=== PATIENT | female | born 1985 | race Two or more races ===

== ENCOUNTER → 2017-08-31 14:41 | Outpatient (CLI) | payer SELFPAY ==
[2017-08-31 16:25] LABS: hCG Titer Quant., Serum 147 mIU/mL (<9 non-preg)
== END ==
PROVIDERS: Visit Provider Obstetrics & Gynecology
DX: O20.0 Threatened abortion (principal)
CPT/HCPCS: 36415; 84702

== ENCOUNTER → 2017-09-02 14:59 | Outpatient (CLI) | payer SELFPAY ==
[2017-09-02 16:41] LABS: hCG Titer Quant., Serum 149 mIU/mL (<9 non-preg)
== END ==
PROVIDERS: Visit Provider Obstetrics & Gynecology
DX: O20.0 Threatened abortion (principal); Z3A.00 Weeks of gestation of pregnancy not specified
CPT/HCPCS: 36415; 84702

== ENCOUNTER → 2020-06-26 16:13 | Outpatient (CLI) | payer SELFPAY ==
[2020-07-02 16:34] LABS: HPV Reflexed? NOT INDICATED
== END ==
PROVIDERS: Visit Provider Obstetrics & Gynecology
DX: Z12.4 Encounter for screening for malignant neoplasm of cervix (principal)
CPT/HCPCS: 88175; G0145

== ENCOUNTER 2020-06-28 13:31 | Day surgery (SDC) | payer SELFPAY ==
[2020-06-28] VITALS (7 sets, daily range): BP systolic 105–129; BP diastolic 71–81; PULSE 72–101; RESP 16–18; TEMP 36.1–36.9; O2SAT 98–100; BMI 32.1
--- NOTE | 2020-06-28 12:25 | HP.PCM_ITS ---
History and Physical Date of Admission: 06/28/20 Surgical History and Physical Date: 06/28/2020 Name: STEPHANY VALENCIA Age: 35 Date of : 1985 Stephany Valencia, a 35 year old female 4 1 3 0 5, presents for Suction D and E on June 28, 2020 at 2:30. -- Stephany presents 35 y.o. G 8 P 5 non-smoker with an approximate guess at LMP of 04-22-20. UPT is positive today in our Office. Presents by approximate LMP at 9 weeks 1 day and an CHANDA of 01-27-21. Denies spotting/bleeding thus far in . MEDICATIONS HISTORY: Patient is also takin. 27-0.8 mg tablet, One pill by mouth once a day ALLERGIES: NKDA Infections - Chicken pox Illnesses - no serious past illnesses Accidents - None Hospitalizations - C/S 08-13-06 Jason Perez Review of Systems: GENERAL - Denies fever, or chills SKIN - Denies skin changes EYES - Denies visual changes EARS - Denies difficulty hearing NOSE - Denies nasal congestion or bleeding MOUTH - Denies sore throat or difficulty swallowing NECK - Denies pain or swelling RESPIRATORY - Denies shortness of breath or wheezing CARDIOVASCULAR - Denies palpitations or chest pain GASTROINTESTINAL - nausea GENITOURINARY - Denies dysuria, frequency of urination, incontinence of urine MUSCULOSKELETAL - Denies joint or muscle pain NEUROLOGICAL - Denies localized numbness or weakness PSYCHIATRIC - Denies depression or anxiety ENDOCRINE - Denies heat or cold intolerance, weight loss or gain HEMATO-IMMUNOLOGIC - Denies excessive bleeding with cuts SOCIAL HISTORY: Alcohol Use - denies use Smoking - denies use Diet - balanced Diet Lifestyle - moderate stress lifestyle and Exercise - active Seat Belt Use - always Employer - homemaker Illicit Drug Use - denies use of street drugs Sexual Activity - Residence - owns a home Spouse-Sig Other Name - Aleksander Spouse-Sig Other Occupation - construcion crew Spouse-Sig Other Phone No - [phone] Children Name(s) - Mariano '07, Cedric '08,Keri '11, Cirilo '13,Rajendra '16 Control - FAMILY HISTORY: Maternal history of Heart Disease. Paternal history of Heart Disease. Father: DM II. MENSTRUAL HISTORY: LMP Known?- Approximate-Month Known, LMP - 04/22/20, Age Onset Menarche - 11 PAST PREGNANCIES: Total Pregnancies - 9; Full Term Pregnancies - 4; Premature - 1; Abortions, Ind uced - 0; Abortions, Spontaneous - 3; Ectopics - 0; Multiple Births - 0; Living Children - 5 SURGICAL HISTORY: 1. 05/01/2010 Repeat ; - 2. 11/03/2007 Repeat ; - 3. 08/13/2006 ; JASMIN - placenta was hardening, Severe IUGR, severe oligohydramnios, non-reassurring NST 4. 01/03/2013 Repeat ; Arthur Gardner M.D. - 5. 11/06/2015 ; Arthur Gardner M.D. - PHYSICAL EXAM BP- 128/86 Sitting, Right arm, regular cuff Weight- 199.97237 lbs Height- 66 inch BMI:32.19 CONSTITUTIONAL - NAD, well nourished, and well developed SKIN - No rash, lesions, or ulcers HEENT - Normocephalic, PERRLA, EOMI NECK - No nodes, no nuchal rigidity and thyroid normal size and texture LYMPH NODES - Palpation of lymph nodes in neck and groins within normal limits LUNGS - CTA x2 without wheezes, crackles or rales CARDIAC - Regular rate and rhythm without rubs, murmurs, or gallops BREAST - declined ABDOMEN - Without hepatosplenomegaly, distention, masses, rebound, or guarding; normal bowel sounds; no hernias EXTREMITIES - No edema or calf tenderness NEUROLOGICAL - Cranial nerves II-XII grossly intact PSYCHIATRIC - A and O to time, place, person, mood and affect External Genital Vagina - non-tender without lesions Urethra/Urethral Meatus - non-tender Bladder - non-tender Vagina - vaginal stubbs are pink and moist without loss of rugae and no evidence of atrophy Cervix - without cervical motion tenderness and has normal size and features without evident lesions Uterus - multiparous size 6 cm & wt 75-125 g Adnexa - clear without masses or tenderness Pap - GC/Chlamydia cultures done, done -- Reflex to ASCUS, LSIL and JANE ASSESSMENT/PLAN: 1. Blighted ovum Positive test in office today. U/s with blighted ovum and concern for molar . For suction D&C
[2020-06-28 14:12] LABS: Hematocrit 42.5 % (37-47); Mean Corp Hgb Conc 32.9 g/dL (32-36); Mean Corpuscular Volume 88.2 fL (81-99); Mean Platelet Vol. 9.2 fl (6.2-12.0); Platelet Count 194 K/mm3 (150-450); RBC Distribution Width CV 13.5 % (11.6-14.6); RBC Distribution Width SD 43.6 fl (35.1-43.9); Red Blood Count 4.82 M/mm3 (4.2-5.4); White Blood Count 7.1 K/mm3 (4.4-11.0)
[2020-06-28 14:26] LABS: ALB/GLOB Ratio 1.1 RATIO (0.9-2.4); AST(SGOT) 15 U/L (15-37); Alanine Aminotransfer ALT/SGPT 33 U/L (13-56); Albumin, Serum 4.1 g/dL (3.2-5.0); Alkaline Phosphatase 40 U/L (45-117); Anion Gap 8 (5-15); BUN 8 mg/dL (7-18); BUN/Creat Ratio 12.5 RATIO (10-20); Chloride 103 mmol/L (98-107); Creatinine, Serum 0.64 mg/dL (0.55-1.02); EST Glomerular Filtration Rate 113 mL/min (>60); Est Glom Filt Rate - Afr Amer 136 mL/min (>60); Estimated Creatinine Clearance 114.86 ml/min; Globulin 3.8 g/dL (2.2-4.2); Glucose 92 mg/dL (74-106); Potassium 3.5 mmol/L (3.5-5.1); Protein, Total 7.9 g/dL (6.4-8.2); Sodium Level 135 mmol/L (136-145)
[2020-06-28] MEDS: Lactated Ringers 1,000 ML 100 ML IV (14:28)
--- NOTE | 2020-06-28 14:30 | POC_PTH ---
PATIENT: GISELLA VALENCIA LOC: [facility] U#:[id number] AGE/SX: 35/F ROOM: RE06/28/[address]: Dr. Jesus Morales MD : 1985 BED: DIS: 06/28/2020 SPEC #: [id number] RECD: 07/01/20 06:45 STATUS: HUI CHEYDaphne #: [id number] TATYANA: 06/28/20 14:[address]: Jesus Morales DEPT: SURGICAL PATHOLOGY RECD BY: Linda Castillo ENTERED: 07/01/20 07:52 SP TYPE: PROD CONC OTHR DR: No Primary Care Phys Tissues: Product of conception, NOS Procedures: Surgery Specimen Level IV HEADER OPERATION: Suction dilation and curettage PRE-OP DIAGNOSIS: Blighted ovum TISSUE SUBMITTED: Products of conception MICROSCOPIC DIAGNOSIS Endometrium, curettage: Chorionic villi, decidualized stroma and trophoblastic cells consistent with products of conception. AM:liya 07/02/2020 MICROSCOPIC DESCRIPTION Slides are reviewed. GROSS DESCRIPTION Received in fixative is one container labeled with the patient's name and designated products of conception. The specimen consists of multiple irregular fragments of light to dark mora soft tissue that in aggregate measure 8 x 7 x 1 cm. parts are not grossly recognized. Rounder Hand portions are submitted in one cassette. / AM:rg 07/01/20 TC:3 CPT: 05486
--- NOTE | 2020-06-28 16:33 | DCINST_ITS ---
Discharge Diet: No Restrictions Discharge Activity: Return to Normal Activity, May Drive, May Shower May resume sexual activity in: 4-6 weeks Weight Bearing Status: Weight bearing as tolerated Call your doctor if your incision/area has: Continuous Slow Oozing, Foul Smelling Discharge Call your doctor if you observe: Fever of 101 or Higher, Shortness of breath, Chest pain Allergies/Adverse Reactions: Allergies No Known Allergies Allergy (Verified 06/28/20 14:10) Medications to take at Discharge NK 06/27/20 Primary Care Physician: Care Physician,No Primary [Primary Care Provider] - Test Results: Test results from this visit will be discussed in further detail at your follow- up appointment, if applicable. Please Follow Up With: Arthur Gardner MD When: 2 weeks
--- NOTE | 2020-06-28 16:34 | OP.PCM_ITS ---
Report of Operation Date of Procedure: 06/28/20 Pre-Operative Diagnosis: Blighted ovum, possible molar Post-Operative Diagnosis: Blighted ovum, possible molar Surgery/Procedure Performed:: Suction dilation curettage ultrasound-guided Description of Surgical Findings:: Surgeon: Jesus Morales MD Anesthesia: MAC EBL: 25 cc Urine output: 400 cc IV fluids: 500 cc Complications: None Specimen: products of conception Findings: Normal cervix. 7 mm curved curette used. Post procedure ultrasound with thin endometrial stripe. Consent: Patient with blighted ovum possible molar in need of suction dilation curettage. Patient understands the risk of the procedure include but are not limited to visceral or vascular injury, prolonged hospitalization, blood loss and need for transfusion, reoperation. Patient stated understanding wished proceed. Patient educated on genetic screening with products of conception and declined. All questions were answered consent was signed. Procedure: Patient was brought back to the OR where MAC anesthesia found to be adequate. 200 mg of doxycycline IV were given for infection prophylaxis. Patient was prepared and draped in a dorsolithotomy position with yellowfin stirrups. Weighted speculum placed in posterior aspect of vagina. Cervical dilators were used to dilate cervix. 7 mm suction curette was used under direct visualization. Products sent to pathology. Good hemostasis was noted. Post procedure ultrasound findings as noted above. All counts correct x2. Patient tolerated procedure well was brought recovery stable condition. admissions clerk: None
== END 2020-06-28 17:58 | disposition home or self-care (01) ==
LOC: SDC 13:37 → AC 13:39
PROVIDERS: Referring Provider Obstetrics & Gynecology; Visit Provider Obstetrics & Gynecology
PROC: (CPT 59820; principal; 2020-06-28 14:15)
DX: O02.0 Blighted ovum and nonhydatidiform mole (principal); Z20.828 Contact with and (suspected) exposure to other viral communicable diseases
CPT/HCPCS: 59820; 80053; 84702; 85027; 86850; 86900; 86901; 87426; 88305; J7120; J2405